=== PATIENT | female | born 1940 | race Two or more races ===

== ENCOUNTER 2017-01-01 10:15 | Outpatient (CLI) | payer MEDICARE, OTHER | END 2017-01-01 23:59 | disposition home or self-care (01) | LOC: LAB 10:15 | PROVIDERS: ATTEND Specialist | DX: Z01.818 Encounter for other preprocedural examination (principal); M17.11 Unilateral primary osteoarthritis, right knee; M85.88 Other specified disorders of bone density and structure, other site; I70.0 Atherosclerosis of aorta | CPT/HCPCS: 36415; 71010; 73560; 84550; 85025; 85730; 93005 ==

== ENCOUNTER 2017-01-03 09:25 | Day surgery (SDC) | payer MEDICARE ==
[2017-01-01 11:24] LABS: BASOPHILS % (AUTO) 0.5 % (0.0-2.0); EOSINOPHILS # (AUTO) 0.1 K/uL (0.0-0.7); EOSINOPHILS % (AUTO) 1.6 % (0.0-7.0); HEMOGLOBIN 10.8 g/dL (10.9-14.3); LYMPHOCYTES # (AUTO) 1.8 K/uL (20.0-40.0); LYMPHOCYTES % (AUTO) 26.3 % (20.5-51.5); MEAN CORPUSCULAR HEMOGLOBIN 30.3 uug (24.7-32.8); MEAN CORPUSCULAR HGB CONC 34 g/dL (32.3-35.6); MEAN CORPUSCULAR VOLUME 89.4 fL (75.5-95.3); MONOCYTES # (AUTO) 0.8 K/uL (2.0-10.0); MONOCYTES % (AUTO) 11.1 % (0.0-11.0); NEUTROPHILS # (AUTO) 4.1 K/uL (1.8-8.9); NEUTROPHILS % (AUTO) 60.5 % (38.5-71.5); PLATELET COUNT (AUTO) 249 K/uL (179-408); RED BLOOD CELL COUNT(AUTO) 3.58 MIL/uL (3.63-4.92); RED CELL DISTRIBUTION WIDTH 13.2 % (12.3-17.7); WHITE BLOOD COUNT (AUTO) 6.8 K/uL (3.8-11.8)
[2017-01-01 11:25] LABS: *BILIRUBIN,URIN NEGATIVE (NEGATIVE); *BLOOD, URINE Trace-intact (NEGATIVE); *CLARITY,URINE CLEAR (CLEAR); *COLOR,URINE YELLOW (YELLOW); *KETONES,URINE NEGATIVE (NEGATIVE); *PROTEIN,URINE NEGATIVE (NEGATIVE); *UROBILINOGEN,URINE 0.2 E.U./dl (NORMAL); LEUKOCYTE ESTERASE ,URINE 1+ (NEGATIVE); NITRITE, URINE NEGATIVE (NEGATIVE); PH,URINE 5.5 (5.0-8.0); UGLUCOSE NEGATIVE (NEGATIVE)
[2017-01-01 11:37] LABS: BACTERIA,URINE NONE SEEN /HPF (NONE SEEN); RBC,URINE 0-3 /HPF (0-3)
[2017-01-01 11:38] LABS: RENAL EPITHELIAL CELLS,URINE FEW /LPF (NONE SEEN); SQUAMOUS EPITHELIAL CELL,UR FEW /HPF (NONE SEEN)
[2017-01-01 11:48] LABS: CALCIUM 9.2 mg/dL (8.5-10.1); CREATININE 0.6 mg/dL (0.6-1.3); POTASSIUM 4.4 mmol/L (3.5-5.1)
[2017-01-01 11:54] LABS: ALBUMIN 3.7 g/dL (3.4-5.0); BILIRUBIN,TOTAL 0.3 mg/dL (0.2-1.0); TOTAL PROTEIN, SERUM 7.5 g/dL (6.4-8.2)
[2017-01-01 14:20] LABS: URIC ACID 5.2 mg/dL (2.6-6.0)
[~2017-01-03 09:25] MED LIST: CEFAZOLIN 1 G VIAL MC ONE; DEXAMETHASONE SOD PHOSPHATE 4 MG INJ IV ONE; EPHEDRINE SULFATE 50 MG/ML AMPUL MC ONE; IV NORMAL SALINE 1000 ML BAG IV ONE; KETOROLAC TROMETHAMINE 30 MG INJ IM ONE; LIDOCAINE HCL 1% 20 ML VIAL MC ONE; ONDANSETRON 4 MG/2 ML VIAL IV ONE; PROPOFOL 200 MG/20 ML BOTTLE IV ONE; SEVOFLURANE 250 ML BOTTLE IH ONE
[2017-01-03] MEDS ORDERED: BUPIVACAINE 0.25% 30 ML VIAL ONE (11:53)
[2017-01-03] MEDS ORDERED: FENTANYL CITRATE 100 MCG/2 ML AMPUL ONE ×2 (11:57→14:15)
[2017-01-03] MEDS ORDERED: MIDAZOLAM HCL 2 MG/2 ML VIAL ONE (11:58)
[2017-01-03] MEDS ORDERED: ACETAMINOPHEN ES 500 MG TABLET ONE (15:03)
== END 2017-01-03 15:55 | disposition home or self-care (01) ==
LOC: DS 09:25
PROVIDERS: ATTEND Specialist
DX: M23.203 Derangement of unspecified medial meniscus due to old tear or injury, right knee (principal); M22.41 Chondromalacia patellae, right knee
CPT/HCPCS: 29881; 36415; 71010; 73560; 80053; 81001; 82962; 83036; 84550; 85025; 85730; 93005; A4663; J0690; J1100; J1885; J2250; J2405; J3010 ×2; J3490 ×4; J7030 ×2